=== PATIENT | male | born 1965 | race Caucasian/White ===

== ENCOUNTER 2018-04-04 19:46 | Inpatient (IN) | payer MEDICAID ==
[~2018-04-04] VITALS: Ht 172.7 cm; Wt 89.8 kg
[2018-04-04] MEDS: NACL 0.9% 1,000 ML IV SCH (00:40)
[2018-04-04 19:46] VITALS: BP 198/104
--- NOTE | 2018-04-04 19:50 | NUR ---
PT REMOVED ALL CLOTHING AND PUT ON HOSPITAL GOWN AND SLIPPERS. ALL PERSONAL BELONGINGS PLACED IN BAG AND HANDED TO SECURITY FOR SAFEKEEPING. ALL HOSPITAL EQUIPMENT REMOVED FROM ROOM AND CABINETS SECURED OR LOCKED IN PLACE. SITTER PLACED AT BEDSIDE FOR OBSERVATION.
--- NOTE | 2018-04-04 20:05 | NUR ---
Patient being evaluated by physician at bedside.
[2018-04-04 20:14] LABS: BASOPHILS % (AUTO) 0.4 % (0.0-2.0); EOSINOPHILS # (AUTO) 0.2 K/uL (0-0.4); EOSINOPHILS % (AUTO) 1.7 % (0.0-4.0); HEMATOCRIT 47.6 % (36-52); HEMOGLOBIN 15.8 g/dL (12.0-18.0); LYMPHOCYTES # (AUTO) 2.8 K/uL (2.0-11.5); LYMPHOCYTES % (AUTO) 24.6 % (20.5-51.1); MEAN CORPUSCULAR HEMOGLOBIN 29 pg (27-31); MEAN CORPUSCULAR HGB CONC 33 g/dL (33-37); MONOCYTES # (AUTO) 0.9 K/uL (0.8-1.0); MONOCYTES % (AUTO) 7.6 % (1.7-9.3); NEUTROPHILS # (AUTO) 7.4 K/uL (1.8-7.7); NEUTROPHILS % (AUTO) 65.7 % (42.2-75.2); PLATELET COUNT (AUTO) 256 K/uL (140-450); RED BLOOD CELL COUNT(AUTO) 5.41 MIL/uL (4.20-6.10); RED CELL DISTRIBUTION WIDTH 14.2 % (11.6-13.7); WHITE BLOOD COUNT (AUTO) 11.3 K/uL (4.8-10.8)
--- NOTE | 2018-04-04 20:20 | NUR ---
BIB [facility] C/O AUDIABLE HALLUCINATIONS X2/3 MONTHS. 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 PT DENIES ANY PLAN OR INTENT TO HARM HIMSELF OR OTHERS. PT STATES TO DRINK ALCOHOL OCCASIONALLY; SMOKES METH 1-2 TIMES A WEEK, LAST SMOKED METH ON THURSDAY. WORKS CURRENTLY A [employer]. DENIES N/V/D; SOB; CP; LOC; AAOX4. PT STATES 0/10 PAIN AT THIS TIME. ER MD MADE AWARE OF PT. WILL CONTINUE TO MONITOR. PMH: DENIES RX: DENIES
[2018-04-04 20:23] LABS: ANION GAP 8.5 (8-16); CARBON DIOXIDE 27.9 mmol/L (21-32); CHLORIDE 101 mmol/L (98-107); GFR ARICAN-AMERICAN 104 mL/min (>90); GLUCOSE 193 mg/dL (74-106); POTASSIUM 3.4 mmol/L (3.5-5.1); SODIUM SERUM 134 mmol/L (136-145); UREA NITROGEN, BLOOD 22 mg/dL (7-18)
[2018-04-04 20:28] LABS: BARBITURATE, URINE NEG. ng/ml (NEG <=200); BENZODIAZEPINE, URINE NEG. ng/mL (NEG <=200); CANNABINOID, URINE NEG. ng/mL (NEG <=50); COCAINE, URINE NEG. ng/mL (NEG <=300); OPIATE, URINE NEG. ng/mL (NEG <=2000); PHENCYCLIDINE SCREEN,URINE NEG. ng/mL (NEG <=25)
[2018-04-04 20:30] LABS: ALBUMIN 3.9 g/dL (3.4-5.0); ASPARTATE AMINOTRANSFERASE 15 U/L (15-37); TOTAL BILIRUBIN 0.6 mg/dL (0.0-1.0)
[2018-04-04 20:32] LABS: ACETAMINOPHEN < 0.5 ug/ml (10-30); SALICYLATE < 2.8 mg/dL (2.8-20.0)
--- NOTE | 2018-04-04 20:42 | NUR ---
REQUEST FOR TELEPSYCH INITIATED
--- NOTE | 2018-04-04 22:18 | NUR ---
SPOKE W/ ABOUT INFO FOR PT. WILL MEET WITH PT IN A FEW MINUTES.
--- NOTE | 2018-04-04 23:08 | NUR ---
DR. RODRIGUEZ RETURNED CALL, RECOMENDED ADMIT PT TO PSYCH FACILITY.
[2018-04-04] MEDS ORDERED: ACETAMINOPHEN 325 MG TAB PO PRN (23:55)
[2018-04-04] MEDS ORDERED: ONDANSETRON 4 MG/2 ML VIAL IM/IVP PRN (23:55)
[2018-04-04] MEDS ORDERED: MORPHINE SULFATE 2 MG/ML SYR IVP PRN (23:55)
[2018-04-04] MEDS ORDERED: HYDROcodone/APAP 5/325 MG 1 TAB TAB PO PRN (23:55)
[2018-04-04] MEDS ORDERED: DOCUSATE SODIUM 100 MG GELCAP PO PRN (23:55)
[2018-04-04] MEDS ORDERED: LORazepam 2 MG/ML VIAL IM/IVP PRN (23:55)
--- NOTE | 2018-04-05 00:07 | NUR ---
Called the following contracted psych facilities for bed placement, currently no beds available tonight. [facility], s/w Gideon. [facility], s/w Alexander. [facility], s/w Maria Esther. [facility], s/w Renetta. They are not accepting packets at this time and will accept packets next AM shift. [facility]it[facility] Bert[facility], s/w Gaviota, packet was faxed. [facility], no answer, left detailed message to call [facility] or [facility] for patient inquiry. [facility], s/w Matt, packet faxed.
[2018-04-05 00:24] LABS: PHOSPHORUS 3.4 mg/dL (2.5-4.9); THYROID STIMULATING HORMONE 2.44 uIU/mL (0.34-3.74)
[2018-04-05 00:40] VITALS: BP 155/84
--- NOTE | 2018-04-05 00:40 | NUR ---
Admited to [facility]. Will go to room 110A. Belongings list completed. Report to Valerie HERNANDEZ.
--- NOTE | 2018-04-05 00:40 | NUR ---
ADMITTED A 43M FROM ER . CAME BY WHEELCHAIR AWAKE,ALERT AND ORIENTED X4. HERE DUE TO AUDITORY HALLUCINATION THAT HE SAID SOMEBODY TELLING HIM HE WILL /OR HAS TO . DX; DANGER TO SELF 51/50 HOLD. NO OTHER MEDICAL /MENTAL PROBLEM. NOT ON ANY MEDICATIONS BUT HE SAID HE TAKE DRUGS,METH LAST WAS THURSDAY. PT CAME WITH HL ON THE LT AC #20. CLEAR AND PATENT. PT PLACED COMFORTABLY IN BED. ROOM FREE OF ANY OBJECTS THAT CAN CAUSE TO HURT PT/OTHERS. BED ON LOWEST POSITION. WILL CLOSELY MONITOR PT.
[2018-04-05 00:45] LABS: PROTHROMBIN TIME 9.7 secs (10.8-13.4)
[2018-04-05] MEDS ORDERED: INFLUENZA VIRUS VACCINE QUAD 0.5 ML SYR IMVAC PRN (01:35)
[2018-04-05] MEDS: NACL 0.9% 1,000 ML IV SCH ×2 (02:16→13:00)
--- NOTE | 2018-04-05 04:00 | NUR ---
DR. CAMPOS ,RESIDENT MD CAME AND EXAMINED PT. HE NOTICED SLIGHT SWELLING ON THE LT ANKLE. SOME SKIN DISCOLORATION BUT OTHERWISE SKIN INTACT.
[2018-04-05] MEDS ORDERED: POTASSIUM CHLORIDE 10 MEQ TABER PO SCH (05:00)
--- NOTE | 2018-04-05 05:33 | NUR ---
CALLED DR. TAVARES SERVICE NO . ABLE TO TALKED TO JELENA AND SHE SAID SHE WILL GIVE THE MESSAGE FOR CONSULT ON PT THIS AM.
[2018-04-05 07:15] LABS: BASOPHILS % (AUTO) 0.5 % (0.0-2.0); EOSINOPHILS # (AUTO) 0.2 K/uL (0-0.4); EOSINOPHILS % (AUTO) 2.1 % (0.0-4.0); HEMATOCRIT 45.9 % (36-52); HEMOGLOBIN 15.2 g/dL (12.0-18.0); LYMPHOCYTES # (AUTO) 2.2 K/uL (2.0-11.5); MEAN CORPUSCULAR HEMOGLOBIN 29 pg (27-31); MEAN CORPUSCULAR HGB CONC 33 g/dL (33-37); MEAN CORPUSCULAR VOLUME 88.3 fL (80-94); MONOCYTES # (AUTO) 0.6 K/uL (0.8-1.0); NEUTROPHILS # (AUTO) 5.4 K/uL (1.8-7.7); NEUTROPHILS % (AUTO) 64.4 % (42.2-75.2); PLATELET COUNT (AUTO) 246 K/uL (140-450); RED CELL DISTRIBUTION WIDTH 14.4 % (11.6-13.7); WHITE BLOOD COUNT (AUTO) 8.4 K/uL (4.8-10.8)
--- NOTE | 2018-04-05 07:20 | NUR ---
REPORT RECEIVED FROM PM NURSE MARINO. PT AWAKE, ALERT ORIENTED, ABLE TO COMMUNICATE NEEDS. PT DENIES PAIN OR DISCOMFORT. NO S/S OF ACUTE DISTRESS NOTED AT THIS TIME, SITTER AND SAFETY PRECAUTIONS IN PLACE. WILL CONTINUE TO MONITOR.
--- NOTE | 2018-04-05 07:23 | NUR ---
ENDORSED PT IN STABLE CONDITION TO AM NURSE.
[2018-04-05 08:00] VITALS: BP 150/77
--- NOTE | 2018-04-05 08:16 | NUR ---
PATIENT HAS BEEN SCREENED AND CATEGORIZED LOW NUTRITION RISK. PATIENT WILL BE SEEN WITHIN 7 DAYS OF ADMISSION. 04/11/[address]
[2018-04-05] MEDS: OLANZapine 5 MG TAB PO SCH (08:29)
[2018-04-05 09:00] LABS: ANION GAP 8.9 (8-16); CARBON DIOXIDE 29.3 mmol/L (21-32); CREATININE 0.7 mg/dL (0.7-1.3); POTASSIUM 4.2 mmol/L (3.5-5.1)
[2018-04-05 09:06] LABS: CHOL/HDL RATIO 4.3 (1-4.5)
--- NOTE | 2018-04-05 10:30 | NUR ---
PT REMAINS ALERT ORIENTED, ABLE TO COMMUNICATE NEEDS. FAMILY AT BEDSIDE, OBTAINED NEXT OF KIN INFORMATION AND CORRECT , NOTIFIED ADMITTING. PT DENIES PAIN OR DISCOMFORT. NO S/S OF ACUTE DISTRESS NOTED AT THIS TIME, SITTER AND SAFETY PRECAUTIONS IN PLACE. WILL CONTINUE TO MONITOR.
[2018-04-05 13:23] LABS: APPEARANCE,URINE CLEAR (CLEAR); BILIRUBIN,URINE NEGATIVE (NEGATIVE); BLOOD, URINE NEGATIVE (NEGATIVE); COLOR,URINE YELLOW (YELLOW); LEUKOCYTE ESTERASE ,URINE NEGATIVE (NEGATIVE); NITRITE, URINE NEGATIVE (NEGATIVE); UGLUCOSE 3+ (NEGATIVE)
--- NOTE | 2018-04-05 13:30 | NUR ---
PT ASLEEP, EASILY AROUSABLE TO ALERT ORIENTED AND ABLE TO COMMUNICATE NEEDS. PT DENIES PAIN OR DISCOMFORT. NO S/S OF ACUTE DISTRESS NOTED AT THIS TIME, SITTER AND SAFETY PRECAUTIONS IN PLACE. WILL CONTINUE TO MONITOR.
--- NOTE | 2018-04-05 14:12 | NUR ---
Called the following facilities for placement: [facility], s/w Irasema, no beds [facility], s/w Zuleika, no beds [facility], s/w Jasmin, no beds [facility], s/w lauryn Peterson, spoke with Heriberto, no beds [facility], s/w Vini, no beds [facility], s/w Sherrill, no beds
[2018-04-05 16:00] VITALS: BP 130/69
--- NOTE | 2018-04-05 16:30 | NUR ---
PT AWAKE ALERT ORIENTED AND ABLE TO COMMUNICATE NEEDS. FAMILY AT BEDSIDE. PT DENIES PAIN OR DISCOMFORT. NO S/S OF ACUTE DISTRESS NOTED AT THIS TIME, SITTER AND SAFETY PRECAUTIONS IN PLACE. WILL CONTINUE TO MONITOR.
--- NOTE | 2018-04-05 19:31 | NUR ---
PT REMAINED ALERT ORIENTED THROUGHOUT SHIFT, ABLE TO COMMUNICATE NEEDS. PT CURRENTLY RESTING IN BED, VISITORS AT BEDSIDE SITTER AND SAFETY MEASURES IN PLACE. NO S/S OF ACUTE DISTRESS NOTED AT THIS TIME. REPORT ENDORSED TO ONCOMING NURSE RANJITH.
--- NOTE | 2018-04-05 19:32 | NUR ---
RECD. COMFORTABLY SLEEPING, SNORING IN BED. IV 0F NS AT 20 ML/HR INFUSING, LEFT AC G20. NO APPEARANCE OF PAIN 0/10. SAFETY MEASURES ENFORCED. 1:1 SITTER MONITORING PATIENT NEAR DOOR. WILL CONTINUE TO ENSURE PATIENT SAFETY AND MONITOR CLOSELY THROUGHOUT THE SHIFT.
--- NOTE | 2018-04-05 20:00 | NUR ---
Patient's Plan of Care was discussed and reviewed with BOBBIN INSPECTOR: RANJITH BARNARD
[2018-04-06] VITALS: BP 156/83
--- NOTE | 2018-04-06 00:15 | NUR ---
WAKEN UP FOR FROM SLEEP, INQUIRED IF HE STILL IS HEARING VOICES, STATED YES. VS STABLE. WENT BACK TO SLEEP AFTER VOIDING IN THE TOILET.
--- NOTE | 2018-04-06 02:06 | NUR ---
Notified Carla RN , Telemetry nurse at this time there are no vacancy at the following facilities [facility] will continue to make calls thru the shift , will notify Pts nurse if placement is found.
--- NOTE | 2018-04-06 03:00 | NUR ---
STILL SLEEPING COMFORTABLY IN BED.
--- NOTE | 2018-04-06 06:00 | NUR ---
WOKE UP, WENT TO BR TO VOID FOR THE SECOND TIME. BACK TO BED AFTER VOIDING. NEW 1:1 SITTER MONITORING PATIENT.
[2018-04-06 06:10] LABS: BASOPHILS # (AUTO) 0.1 K/uL (0.00-0.22); BASOPHILS % (AUTO) 0.6 % (0.0-2.0); EOSINOPHILS # (AUTO) 0.3 K/uL (0-0.4); EOSINOPHILS % (AUTO) 3.3 % (0.0-4.0); HEMATOCRIT 46.3 % (36-52); HEMOGLOBIN 15.4 g/dL (12.0-18.0); LYMPHOCYTES # (AUTO) 2.2 K/uL (2.0-11.5); LYMPHOCYTES % (AUTO) 27.2 % (20.5-51.1); MEAN CORPUSCULAR HEMOGLOBIN 30 pg (27-31); MEAN CORPUSCULAR HGB CONC 33 g/dL (33-37); MEAN CORPUSCULAR VOLUME 88.3 fL (80-94); MONOCYTES # (AUTO) 0.5 K/uL (0.8-1.0); MONOCYTES % (AUTO) 6.6 % (1.7-9.3); NEUTROPHILS % (AUTO) 62.3 % (42.2-75.2); PLATELET COUNT (AUTO) 230 K/uL (140-450); RED BLOOD CELL COUNT(AUTO) 5.24 MIL/uL (4.20-6.10); RED CELL DISTRIBUTION WIDTH 14.3 % (11.6-13.7)
[2018-04-06 06:39] LABS: ANION GAP 9.1 (8-16); CARBON DIOXIDE 28.9 mmol/L (21-32); CREATININE 0.8 mg/dL (0.7-1.3)
[2018-04-06 06:51] LABS: PHOSPHORUS 3.3 mg/dL (2.5-4.9)
--- NOTE | 2018-04-06 07:30 | NUR ---
ENDORSED TO AM SHIFT NURSE FOR CONTINUITY OF CARE.
--- NOTE | 2018-04-06 07:31 | NUR ---
RECEIVED REPORT FROM CAR PARKER NURSE, RANJITH, AT BEDSIDE FOR CONTINUITY OF CARE. PATIENT RESTING IN BED WITH EYES CLOSED, RESPIRATIONS EVEN AND UNLABORED ON ROOM AIR, NO SIGN OF DISTRESS OR SOB NOTED. IV SITE PATENT, INTACT, AND ASYMPTOMATIC, INFUSING IVF WELL. UPDATED BOARD. PATIENT HAS SITTER FOR 5150 HOLD. SAFETY PRECAUTIONS IN PLACE, SITTER AT SIDE, WILL CONTINUE TO MONITOR PATIENT.
[2018-04-06 08:00] VITALS: BP 158/75
[2018-04-06] MEDS: OLANZapine 5 MG TAB PO SCH (08:38)
--- NOTE | 2018-04-06 08:38 | NUR ---
ORDERED MEDICATION GIVEN. PATIENT TOLERATED IT WELL. PATIENT NOW AWAKE AND ALERT, EATING BREAKFAST, NO SIGN OF DISTRESS OR SOB NOTED ON ROOM AIR, PATIENT DENIES PAIN, C/O TOLERABLE PAIN ON LEFT ANKLE. SAFETY PRECAUTIONS IN PLACE, SITTER AT SIDE, WILL CONTINUE TO MONITOR PATIENT.
--- NOTE | 2018-04-06 10:44 | NUR ---
PATIENT SLEEPING IN BED, RESPIRATIONS EVEN AND UNLABORED ON ROOM AIR. SAFETY PRECAUTIONS IN PLACE, SITTER AT SIDE, WILL CONTINUE TO MONITOR PATIENT.
--- NOTE | 2018-04-06 11:02 | NUR ---
CALLED DR. TAVARES AT [phone] TO FOLLOW UP ABOUT CONSULT FOR PATIENT. NO ANSWER, LEFT VOICEMAIL. WAITING FOR DR. TAVAERS TO CALL BACK.
[2018-04-06] MEDS: NACL 0.9% 1,000 ML IV SCH (12:25)
--- NOTE | 2018-04-06 12:45 | NUR ---
PATIENT SLEEPING IN BED, RESPIRATIONS EVEN AND UNLABORED ON ROOM AIR. SAFETY PRECAUTIONS IN PLACE, SITTER AT SIDE, WILL CONTINUE TO MONITOR PATIENT.
--- NOTE | 2018-04-06 13:00 | NUR ---
PATIENT AWAKE, SITTING UP IN BED EATING LUNCH. NO COMPLAINTS OF PAIN AT THIS TIME. SAFETY PRECAUTIONS IN PLACE, SITTER AT SIDE, WILL CONTINUE TO MONITOR PATIENT.
--- NOTE | 2018-04-06 13:21 | NUR ---
DR. METCALFREES IN TO EVALUATE THE PATIENT. WILL WAIT FOR HIS ASSESSMENT.
[2018-04-06] MEDS ORDERED: LISINOPRIL 10 MG TAB PO SCH (14:08)
[2018-04-06] MEDS ORDERED: OLAN5TAB30 PO (14:09)
[2018-04-06] MEDS ORDERED: LISI10TA11 PO (14:10)
[2018-04-06] MEDS ORDERED: METF500T PO (14:22)
[2018-04-06 14:25] VITALS: BP 150/85
--- NOTE | 2018-04-06 14:25 | NUR ---
BP 150/82 HR 69. ORDERED MEDICATIONS GIVEN. PATIENT TOLERATED IT WELL. PATIENT AWARE OF IMPENDING DISCHARGE. SECURITY CALLED. PATIENT'S BELONGINGS BROUGHT TO PATIENT. WILL CONTINUE TO MONITOR PATIENT.
--- NOTE | 2018-04-06 15:30 | NUR ---
BP 150/76 HR 72. NO COMPLAINTS AT THIS TIME. SAFETY PRECAUTIONS IN PLACE, CALL LIGHT WITHIN REACH, WILL CONTINUE TO MONITOR PATIENT.
--- NOTE | 2018-04-06 17:00 | NUR ---
DISCHARGE EDUCATION AND INSTRUCTION GIVEN TO PATIENT. [employer] PHONE USED, SPOKE TO DELORES, # [id number]. GAVE PATIENT RESOURCES ABOUT DIABETES EDUCATION, PSYCHIATRIC AND MENTAL HEALTH RESOURCES, AND SUBSTANCE ABUSE AND ALCOHOL HELP RESOURCES. EDUCATION ABOUT NEW PRESCRIPTIONS GIVEN WELL GLUCOMETER USE AND FOLLOW UP APPOINTMENT WITH PCP AND BLOOD TEST IN 2 WEEKS AFTER START OF NEW MEDICATIONS. PATIENT VERBALIZED UNDERSTANDING. IV REMOVED, IV CATHETER INTACT, ID BANDS CUT. PATIENT CHANGING INTO HIS OWN CLOTHING AND WILL BE READY FOR DISCHARGED.
--- NOTE | 2018-04-06 17:15 | NUR ---
PATIENT AMBULATED OFF FLOOR WITH AND RN. PATIENT TOOK ALL HIS BELONGINGS HOME. PATIENT IN STABLE CONDITION.
== END 2018-04-06 17:15 | disposition home or self-care (01) | DRG 812 ==
LOC: MED 19:46 → EDBD 23:59 → MTU 23:59
PROVIDERS: ADMIT General Practice; ATTEND General Practice
DX: T43.621A Poisoning by amphetamines, accidental (unintentional), initial encounter (principal); G92 Toxic encephalopathy; I67.4 Hypertensive encephalopathy; E83.51 Hypocalcemia; E11.65 Type 2 diabetes mellitus with hyperglycemia; D72.829 Elevated white blood cell count, unspecified; S93.402A Sprain of unspecified ligament of left ankle, initial encounter; E87.1 Hypo-osmolality and hyponatremia; I16.1 Hypertensive emergency; E87.6 Hypokalemia; F12.90 Cannabis use, unspecified, uncomplicated; F17.210 Nicotine dependence, cigarettes, uncomplicated; F15.159 Other stimulant abuse with stimulant-induced psychotic disorder, unspecified; X58.XXXA Exposure to other specified factors, initial encounter; M77.32 Calcaneal spur, left foot; F43.9 Reaction to severe stress, unspecified; Y92.89 Other specified places as the place of occurrence of the external cause; Z79.84 Long term (current) use of oral hypoglycemic drugs; Y93.89 Activity, other specified; Y99.8 Other external cause status
CPT/HCPCS: 36415; 71045; 73610; 80048; 80053; 80305; 81003; 83036; 83690; 83735; 83880; 84100; 84443; 85025; 85610; 85730; 87081; 93005; 99285; G0480; G0482; J7030; Q0092

== ENCOUNTER 2021-07-11 18:58 | Emergency (ER) | payer SELFPAY ==
[~2021-07-11] VITALS: Ht 177.8 cm; Wt 82.6 kg
[~2021-07-11 18:58] MED LIST: LISI10TA30 PO; METF-564 PO; OLAN5TAB65 PO
[2021-07-11 19:14] VITALS: BP 170/103
--- NOTE | 2021-07-11 19:23 | NUR ---
PT TAKEN TO ER BED 04
--- NOTE | 2021-07-11 20:42 | NUR ---
SEE COMPLETE ASSESSMENT
[2021-07-11 20:53] VITALS: BP 187/101
--- NOTE | 2021-07-11 20:53 | NUR ---
INITIAL BP 190/111. REPEAT 187/101. PT ASYMPTOMATIC DR. MARTINEZ NOTIFIED.
--- NOTE | 2021-07-11 20:55 | NUR ---
DR. MARTINEZ AT BEDSIDE FOR EVALUATION.
[2021-07-11] MEDS ORDERED: KETOROLAC 60 MG/2 ML VIAL IM ONE (21:00)
[2021-07-11] MEDS ORDERED: CEPH-588 PO (21:28)
[2021-07-11] MEDS ORDERED: ACET-8386 PO (21:28)
[2021-07-11] MEDS ORDERED: IBUP-2213 PO (21:28)
--- NOTE | 2021-07-11 21:28 | NUR ---
PT REPORTS DECREASED FOOT PAIN 7/10 S/P MEDICATION ADMINISTRATION
--- NOTE | 2021-07-11 21:34 | NUR ---
Patient discharged with v/s stable. Written and verbal after care instructions given and explained. Patient alert, oriented and verbalized understanding of instructions. Ambulatory with steady gait. All questions addressed prior to discharge. ID band removed. Patient advised to follow up with PMD. Rx of NORCO, KEFLEX, AND MOTRIN given. Patient educated on indication of medication including possible reaction and side effects. Opportunity to ask questions provided and answered.
== END 2021-07-11 21:34 | disposition home or self-care (01) ==
LOC: MED 18:58
DX: L03.116 Cellulitis of left lower limb (principal); F17.200 Nicotine dependence, unspecified, uncomplicated; Z79.84 Long term (current) use of oral hypoglycemic drugs; Z79.899 Other long term (current) drug therapy
CPT/HCPCS: 96372; 99283; J1885